=== PATIENT | male | born 1990 | race Caucasian/White ===

== ENCOUNTER → 2019-12-22 | Outpatient (CLI) | payer OTHER ==
[~2019-12-22] MED LIST: NO MEDS PER PATIENT
== END | disposition home or self-care (01) ==
LOC: STAR 08:49
PROVIDERS: ATTEND Anesthesiology
DX: Z01.812 Encounter for preprocedural laboratory examination (principal); Z20.828 Contact with and (suspected) exposure to other viral communicable diseases
CPT/HCPCS: 36415; 87635

== ENCOUNTER 2019-12-27 06:05 | Day surgery (SDC) | payer OTHER ==
[~2019-12-27] VITALS: Ht 175.3 cm; Wt 88.0 kg
[2019-12-27] MEDS ORDERED: CHLORHEXIDINE 15 ML UDC ONE (06:58)
[2019-12-27] MEDS ORDERED: LACTATED RINGERS 1,000 ML IV SCH (07:00)
[2019-12-27] MEDS ORDERED: CHLORHEXIDINE 15 ML UDC MM ONE (07:00)
[2019-12-27 07:05] VITALS: BP 126/85
[2019-12-27] MEDS ORDERED: NO MEDS PER PATIENT (07:22)
[2019-12-27] MEDS ORDERED: PLEASE ENTER ALLERGIES MC SCH (07:30)
[2019-12-27] MEDS ORDERED: MIDAZOLAM 1 MG/ML, 2ML ONE (07:59)
[2019-12-27] MEDS ORDERED: FENTANYL PF 250 MCG/5ML ONE (07:59)
[2019-12-27] MEDS ORDERED: MEPERIDINE/PF 25MG/0.5ML IVPush PRN (08:00)
[2019-12-27] MEDS ORDERED: HYDROmorphone 1 MG/ML, 1ML INJ IVPush PRN (08:00)
[2019-12-27] MEDS ORDERED: PROMETHAZINE 25 MG/ML, 1ML IVPush PRN (08:00)
[2019-12-27] MEDS ORDERED: HYDROcodone/APAP 7.5-325MG/15ML UDC PO PRN (08:00)
[2019-12-27] MEDS ORDERED: hydrALAzine 20 MG/ML, 1ML IV PRN (08:00)
[2019-12-27] MEDS ORDERED: LABETALOL 5MG/ML, 20ML IV PRN (08:00)
[2019-12-27] MEDS ORDERED: HALOPERIDOL 5 MG/ML IV PRN (08:00)
[2019-12-27] MEDS ORDERED: DIPHENHYDRAMINE 50 MG/ML, 1ML IVPush PRN (08:00)
[2019-12-27] MEDS ORDERED: NEOSPORIN OINT, 15GM ONE (08:01)
[2019-12-27] MEDS ORDERED: OXYMETAZOLINE NASAL SPRAY 0.05%, 15ML ONE (08:01)
[2019-12-27] MEDS ORDERED: EPINEPHRINE 1 MG/ML, 1ML ONE (08:01)
[2019-12-27] MEDS ORDERED: BACITRACIN ZINC OINT 500U/GM, 0.9 GM ONE (08:02)
[2019-12-27] MEDS ORDERED: LIDOCAINE 1%, 20ML ONE (08:02)
[2019-12-27] MEDS ORDERED: ROCURONIUM 10 MG/ML,10ML ONE (08:13)
[2019-12-27] MEDS ORDERED: DEXAMETHASONE 4 MG/ML, 1ML ONE (08:45)
[2019-12-27] MEDS ORDERED: PROPOFOL 10 MG/ML, 20ML ONE (08:45)
[2019-12-27] MEDS ORDERED: ONDANSETRON 2MG/ML, 2ML ONE (08:45)
[2019-12-27] MEDS ORDERED: GLYCOPYRROLATE 0.2MG/1ML, 5ML ONE (08:45)
[2019-12-27] MEDS ORDERED: CEFAZOLIN 1,000 MG ONE (08:45)
[2019-12-27] MEDS ORDERED: SUCCINYLCHOLINE 20 MG/ML, 10ML ONE (08:45)
[2019-12-27] MEDS ORDERED: NEOSTIGMINE 1 MG/ML, 10ML ONE (08:45)
[2019-12-27] MEDS ORDERED: OXYcodone 5 MG/5 ML ORAL.SOL UDC ONE (09:22)
[2019-12-27] MEDS ORDERED: FENTANYL PF 100 MCG/2ML ONE (09:22)
[2019-12-27] MEDS: FENTANYL PF 100 MCG/2ML IV PRN ×2 (09:25→09:31)
[2019-12-27] MEDS ORDERED: OXYcodone 5 MG/5 ML ORAL.SOL UDC PO PRN (09:30)
[2019-12-27] MEDS ORDERED: LABETALOL 5MG/ML, 20ML ONE (09:32)
== END 2019-12-27 11:50 | disposition home or self-care (01) ==
LOC: OUT 06:05
PROVIDERS: ATTEND Otolaryngology
DX: J34.2 Deviated nasal septum (principal); J34.3 Hypertrophy of nasal turbinates; J45.909 Unspecified asthma, uncomplicated
CPT/HCPCS: 30140; 30520; 88304; J0171; J0330; J0690; J1100; J2250; J2405; J2704; J2710; J3010; J7120